=== PATIENT | male | born 1940 | race Caucasian/White ===

== ENCOUNTER 2019-10-20 09:45 | Outpatient (CLI) | payer MEDICARE, OTHER, SELFPAY ==
--- NOTE | 2019-10-22 21:34 | P.PCNPFT_ITS ---
PFT Interpretation PFT Interpretation: DOS: 10/20/2019 REQUESTING: Dr. Bowie REASON FOR TESTING: Dyspnea on exertion PULMONARY FUNCTION TESTS Results are reproducible. Spirometry: Mild decrease in FEV1 79%, 2.13 L. mild decrease in FVC 78%. FEV1% mildly reduced 65% predicted. Decreased IRX30-69%. No bronchodilator was gi nithya. Lung volumes: Normal total lung capacity 94%. Mild increase in RV/TLC ratio consistent with air trapping. Mild increase in airway resistance 193%. Diffusion: DLCO normal 81%. Flow volume loop: Scooping of the expiratory limb. IMPRESSION: Mild obstructive ventilatory impairment severe in the small airways with mild air trapping and increased airway resistance. No bronchodilator was g iven. Thuy Hernandez MD
== END 2019-10-20 09:46 | disposition home or self-care (01) ==
PROVIDERS: PCP Family Medicine; Visit Provider Family Medicine
DX: R06.09 Other forms of dyspnea (principal); R94.2 Abnormal results of pulmonary function studies
CPT/HCPCS: 94375; 94726; 94729

== ENCOUNTER 2020-02-13 09:54 | Outpatient (CLI) | payer MEDICARE, OTHER, SELFPAY ==
--- NOTE | 2020-02-17 11:20 | WPDPFTINT ---
PFT Interpretation PFT Interpretation: This PFT met all criteria for ATS standards and reproducibility FEV/FVC post bronchodilator 65% of predicted FEV1 83% or 2.24 liters FVC 82% or 3.43 liters TLC 94% or 6.00 liters RV 98% RV/TLC 44% DLCO when adjusted for alveolar volume but not adjusted for hemoglobin Flow volume loops showed some mild expiratory coving Impression: Mild airflow obstruction. When compared to PFT from 10/20/19 there has no significant change. Clinical correlation is advised.
== END 2020-02-13 09:55 | disposition home or self-care (01) ==
PROVIDERS: PCP Family Medicine; Visit Provider Family Medicine
DX: R06.00 Dyspnea, unspecified (principal); R94.2 Abnormal results of pulmonary function studies
CPT/HCPCS: 94060; 94726; 94729

== ENCOUNTER 2020-08-10 15:23 | Outpatient (CLI) | payer MEDICARE, OTHER, SELFPAY ==
--- NOTE | ~2020-08-10 | XR_ITS ---
XR knee RT 3V 08/10/2020 16:11 INDICATION: Right knee pain PROCEDURE: 3 views right knee COMPARISON: No prior studies for comparison. FINDINGS: Fracture, dislocation or subluxation is not identified. No significant joint effusion. The soft tissues appear within normal limits. No foreign bodies are identified. IMPRESSION: 1: NO ACUTE BONE OR JOINT ABNORMALITY IDENTIFIED. Reviewed, dictated and finalized at location A. IGURATION MANAGEMENT ANALYST
--- NOTE | ~2020-08-10 | XR_ITS ---
XR lumbar spine 2-3V 08/10/2020 16:12 Indication: Low back pain Procedure: 3 views lumbar spine Comparison: 04/29/2014 Findings: There is mild disc narrowing at multiple levels. There is facet hypertrophy at L4-5 and L5- S1. No evidence for spondylolisthesis. No acute fracture or traumatic malalignment. There is dextrocu rvature of the lumbar spine. There is atherosclerosis. Impression: 1: Moderate lumbar spondylosis. Reviewed, dictated and finalized at location A. SECURITY ENGINEER Impression: 1: Moderate lumbar spondylosis.
--- NOTE | ~2020-08-10 | XR_ITS ---
XR hip RT min 2V 08/10/2020 16:11 Indication: Right hip pain Procedure: 3 views right hip Comparison: 04/29/2014 Findings: There is mild osteoarthritis of the right hip. No fracture or traumatic malalignment. No si gnificant soft tissue abnormality. No radiopaque foreign bodies. Impression: 1: Mild osteoarthritis of the right hip. Reviewed, dictated and finalized at location A. NMASTER Impression: 1: Mild osteoarthritis of the right hip.
== END 2020-08-10 15:24 | disposition home or self-care (01) ==
PROVIDERS: PCP Family Medicine; Visit Provider Physician Assistant
DX: M25.561 Pain in right knee (principal); M47.896 Other spondylosis, lumbar region; M16.11 Unilateral primary osteoarthritis, right hip
CPT/HCPCS: 72100; 73502; 73562

== ENCOUNTER 2020-08-30 15:48 | Outpatient (CLI) | payer MEDICARE, OTHER, SELFPAY ==
--- NOTE | ~2020-08-30 | MR_ITS ---
. EXAMINATION: MR hip RT wo con DATE: 08/30/2020 16:54 INDICATION: Right hip pain. TECHNIQUE: Magnetic resonance imaging (MRI) of the right hip was performed without intravenous contra st. Sequences included axial and coronal PD-weighted FS FSE and axial T1-weighted FSE of the pelvis. Sequences of the hip included 2D FIESTA, T1-weighted fast GRE, and axial, coronal, and sagittal PD-we ighted FS FSE. COMPARISON: Right hip radiographs 08/10/2020 FINDINGS: Bones/cartilage: There is a large distribution of osteonecrosis in right femoral head with abnormal bone marrow signal intensity extending to the base of the femoral neck. There is osteonecrosis in left femoral head inv olving the anteroinferior to posterosuperior articular surface. There is mild osteoarthritis of the h ips. Fluid: There is a small right hip joint effusion. There is mild bilateral trochanteric bursitis. Soft tissues: The prostate is moderately enlarged. There is a right inguinal hernia containing fat. There is modera te tendinopathy of the hamstring origins bilaterally. The iliopsoas tendons are normal. There are par tial tears of the gluteus minimus tendons bilaterally. The gluteus medius tendons are intact. IMPRESSION: 1. Osteonecrosis of the femoral heads, right worse than left. 2. Mild osteoarthritis of the hips. 3. Small right hip joint effusion. Reviewed, dictated and finalized at location A. PLUG SHAPER
== END 2020-08-30 15:49 | disposition home or self-care (01) ==
PROVIDERS: PCP Family Medicine; Visit Provider Family Medicine
DX: M25.451 Effusion, right hip (principal); M87.851 Other osteonecrosis, right femur; M16.11 Unilateral primary osteoarthritis, right hip
CPT/HCPCS: 73721

== ENCOUNTER 2021-07-06 13:12 | Outpatient (CLI) | payer MEDICARE, OTHER, SELFPAY ==
--- NOTE | ~2021-07-06 | US_ITS ---
EXAMINATION:US venous doppler LE LT INDICATION:Left leg swelling TECHNIQUE: Multiple grayscale, color flow and Doppler images of the left lower extremity deep venous systems were obtained and reviewed. COMPARISON:No prior studies for comparison. FINDINGS: The common femoral, superficial femoral and popliteal veins demonstrate normal respiratory variation, augmentation and compressibility. Color flow is also seen within the posterior tibial, pe roneal, greater saphenous and profunda veins. IMPRESSION: 1: No lower extremity deep venous thrombosis. Reviewed, dictated and finalized at location A. ALT STILL OPERATOR
== END 2021-07-06 13:13 | disposition home or self-care (01) ==
LOC: ANHIMG 13:17
PROVIDERS: PCP Family Medicine; Visit Provider Internal Medicine Cardiovascular Disease
DX: M79.89 Other specified soft tissue disorders (principal)
CPT/HCPCS: 93971

== ENCOUNTER 2021-07-20 11:58 | Outpatient (CLI) | payer MEDICARE, OTHER, SELFPAY ==
--- NOTE | ~2021-07-20 | XR_ITS ---
XR hip RT 2V w AP pelvis 07/20/2021 12:32 Indication: Right hip pain Procedure: 3 views right hip Comparison: 08/10/2020 Findings: There is a right total hip arthroplasty. Prosthesis well seated. No fracture or traumatic m alalignment. No significant soft tissue abnormality. Pelvic rings are intact. There is mixed lucency and sclerosis of the left femoral head, suspicious for avascular necrosis. Impression: 1: No acute bone or joint abnormality. 2: Possible avascular necrosis of the left femoral head. Reviewed, dictated and finalized at location A. ATORY ATTENDANT Impression: 1: No acute bone or joint abnormality. 2: Possible avascular necrosis of the left femoral head.
--- NOTE | ~2021-07-20 | XR_ITS ---
XR lumbar spine 6V w bending 07/20/2021 12:32 Indication: Low back pain Procedure: 7 views lumbar spine Comparison: 08/10/2020 Findings: There is mild disc narrowing at L1-2, L2-3. There is facet hypertrophy at L5-S1. No acute f racture, subluxation or dislocation. There is atherosclerosis of the aorta. No alteration of alignmen t with flexion/extension. Impression: 1: Moderate lumbar spondylosis. Reviewed, dictated and finalized at location A. LANE PILOT SUPERVISOR Impression: 1: Moderate lumbar spondylosis.
== END 2021-07-20 11:59 | disposition home or self-care (01) ==
PROVIDERS: PCP Family Medicine; Visit Provider Family Medicine
DX: M25.559 Pain in unspecified hip (principal); M47.896 Other spondylosis, lumbar region
CPT/HCPCS: 72114; 73502

== ENCOUNTER 2022-11-03 13:57 | Outpatient (CLI) | payer MEDICARE, OTHER, SELFPAY ==
--- NOTE | 2022-11-03 14:20 | ECG_ITS ---
Measurements Intervals [place] Rate: 65 P: 36 [place]: 150 QRS: 46 QRSD: 92 T: 45 QT: 370 QTc: 385 Interpretive Statements SINUS RHYTHM EARLY PRECORDIAL R/S TRANSITION BORDERLINE ECG NO PREVIOUS ECG AVAILABLE FOR COMPARISON Electronically Signed On 11-03-2022 14:30:49 NUCLEAR REACTOR OPERATOR by Eric Woodard D.O.
[2022-11-03 15:39] LABS: Anion Gap 5 mmol/L (8-16); Blood Urea Nitrogen 11 mg/dL (9-20); Carbon Dioxide 29 mmol/L (22-30); Chloride 101 mmol/L (98-107); Estimated Glomerular Filt Rate > 60; Glucose 92 mg/dL (65-110); Potassium 4.5 mmol/L (3.4-5.0); Sodium 135 mmol/L (137-145)
== END 2022-11-03 13:58 | disposition home or self-care (01) ==
PROVIDERS: PCP Emergency Medicine; Visit Provider Emergency Medicine
DX: E87.5 Hyperkalemia (principal); R94.31 Abnormal electrocardiogram [ECG] [EKG]
CPT/HCPCS: 36415; 80048; 93005

== ENCOUNTER 2022-12-30 13:16 | Outpatient (CLI) | payer MEDICARE, OTHER, SELFPAY ==
--- NOTE | ~2022-12-30 | MR_ITS ---
EXAMINATION: MR lumbar spine wo con DATE: 12/30/2022 13:59 INDICATION: Left foot drop. TECHNIQUE: Magnetic resonance imaging (MRI) of the lumbar spine was performed without intravenous con trast. Sequences included sagittal T2-weighted FSE, sagittal T2-weighted FS FSE, sagittal T1-weighted FSE, and axial T2-weighted FSE. COMPARISON: Lumbar spine MRI 05/05/2014 FINDINGS: There is 12 degrees dextroscoliosis of thoracolumbar spine. There is 3 mm retrolisthesis of L1 on L2. Vertebral body heights are normal. There is mildly decreased disc height at L1-L2 and L2-L 3 and moderately decreased disc height at L4-L5. The distal spinal cord signal intensity is normal. T he conus medullaris is at L1. The following disc levels are specifically discussed: L1-L2: The disc is bulging and has an annular fissure. There is moderate right and mild left facet shannon int osteoarthritis. There is mild bilateral neural foraminal stenosis. There is mild central canal st enosis. L2-L3: The disc is bulging and has an annular fissure. There is severe bilateral facet joint osteoart hritis. There is mild bilateral neural foraminal stenosis. There is mild central canal stenosis. L3-L4: The disc is bulging. There is severe right and mild left facet joint osteoarthritis. There is mild bilateral neural foraminal stenosis. There is mild central canal stenosis. L4-L5: The disc is bulging. There is severe bilateral facet joint osteoarthritis. There is moderate r ight and mild left neural foraminal stenosis. There is mild central canal stenosis. L5-S1: The disc is bulging. There is severe bilateral facet joint osteoarthritis. There is mild bilat eral neural foraminal stenosis. There is mild central canal stenosis. IMPRESSION: 1. Moderate lumbar spondylosis, worsened from 05/05/2014. 2. Thoracolumbar dextroscoliosis. Reviewed, dictated and finalized at location A.
== END 2022-12-30 13:17 | disposition home or self-care (01) ==
PROVIDERS: PCP Emergency Medicine; Visit Provider Physician Assistant
DX: M21.372 Foot drop, left foot (principal); M47.896 Other spondylosis, lumbar region
CPT/HCPCS: 72148

== ENCOUNTER 2024-03-14 12:34 | Outpatient (CLI) | payer MEDICARE, OTHER, SELFPAY ==
--- NOTE | ~2024-03-14 | MR_ITS ---
EXAMINATION: MR wrist RT wo/w con DATE: 03/14/2024 13:50 INDICATION: Right wrist ganglion cyst TECHNIQUE: Magnetic resonance imaging (MRI) of the right wrist was performed without and with 16 mL M ultihance intravenous contrast. Sequences performed include axial PD-weighted FSE and PD-weighted FS FSE, coronal PD-weighted FS FSE and T1-weighted SE, and sagittal PD-weighted FS FSE and PD-weighted F SE. COMPARISON: None FINDINGS: Intrinsic ligaments: Of the scapholunate interval appears mildly widened however no definitive tear is identified of the s capholunate ligament. The lunotriquetral ligament is intact. Triangular fibrocartilage complex (TFCC): Chronic nonunited fracture of the ulnar styloid process with intact styloid attachment of the triangu lar fibrocartilage complex. The foveal attachment also appears intact. There is a tear along the radi al side of the central fibrocartilaginous disc of the triangular fibrocartilage complex. There is par tial tear of the dorsal radioulnar ligament. The extensor carpi ulnaris tendon sheath appears to rem ain intact. Extensor wrist: There is mild tendinopathy of the extensor carpi ulnaris with longitudinal split tear which begins pr oximal to the ECU groove and appears to extend to the digits attachment base of the fifth metacarpal. Extensor tendons of the wrist are otherwise normal. No tenosynovitis. Flexor wrist: There is enhancing tenosynovitis and small amount of tenosynovial fluid along the flexor digitorum an d flexor pulses longus tendons both proximal and distal to the carpal tunnel. There is mild tendinopa thy of the flexor tendons to the second and third digits collateral with additional longitudinal spli t tearing. There is 3-4 mm outward bowing of the flexor retinaculum with significant flattening of th e median nerve as it passes deep to the flexor retinaculum. Guyon's canal: There is focal bulging of the fluid-filled flexor tendon sheath through an apparent defect in the fle xor retinaculum at the level of the pisiform which exerts mild mass effect and mild ulnarly deviates the course of the ulnar nerve and Guyon's canal. Bones/other: No other fracture site from the nonunited ulnar styloid fracture. Polyarticular osteoarthritis, moder ate severity at the first carpometacarpal joint and mild at the triscaphe, wrist and distal radioulna r joints. Mild likely degenerative subarticular cystic change at both sides of the triscaphe joint wi th small erosion at the palmar aspect of the distal pole of the scaphoid. IMPRESSION: 1. Prominent enhancing tenosynovitis along the flexor digitorum and flexor pollicis longus tendons wi th small amount of fluid both proximal and distal to the carpal tunnel. 2. Likely secondary palmar bulging of the flexor retinaculum and flattening of the underlying median nerve . Correlate clinically for carpal tunnel syndrome. 3. Mild mass effect upon the ulnar nerve at Guyon's canal resulting from palmar bulging with a small amount of fluid in the flexor tendon sheath through a small defect in the flexor retinaculum. 4. Chronic nonunited avulsion fracture of the ulnar styloid process with tear of the radial side of t he triangle fibrocartilage and partial tear of the dorsal radioulnar ligament. Reviewed, dictated and finalized at location A. IMPRESSION: 1. Prominent enhancing tenosynovitis along the flexor digitorum and flexor poll icis longus tendons with small amount of fluid both proximal and distal to the carpal tunnel. 2. Likely secondary palmar bulging of the flexor retinaculum and flattening of the underlying median nerve . Correlate clinically for carpal tunnel syndrome. 3. Mild mass effect upon the ulnar nerve at Guyon's canal resulting from palmar bulging with a small amount of fluid in the
== END 2024-03-14 12:35 | disposition home or self-care (01) ==
PROVIDERS: PCP Emergency Medicine; Visit Provider Plastic Surgery
DX: M67.431 Ganglion, right wrist (principal); G56.03 Carpal tunnel syndrome, bilateral upper limbs
CPT/HCPCS: 73223; A9577

== ENCOUNTER 2024-04-09 10:05 | Outpatient (CLI) | payer MEDICARE, OTHER, SELFPAY ==
--- NOTE | 2024-04-09 11:15 | NEURO_ITS ---
Impression: # Complains of numbness of hands. Non-diabetic. # Severe right Carpal Tunnel Syndrome. # Mild left Carpal Tunnel Syndrome. # Abnormal Needle/EMG exam in right APB. Nerve Conduction Studies Anti Sensory Summary Table Stim Site NR Peak (ms) P-T Amp (?V) Site1 Site2 Delta-P (ms) Dist (cm) Randal (m/s) Left Median Anti Sensory (2-3nd Digit) Wrist 4.4 12.7 Wrist 2-3nd Digit 4.4 14.0 32 Wrist 5.2 9.8 Wrist 2-3nd Digit 4.4 14.0 32 Right Median Anti Sensory (2-3nd Digit) Wrist 7.3 19.5 Wrist 2-3nd Digit 7.3 14.0 19 Wrist 6.5 9.2 Wrist 2-3nd Digit 7.3 14.0 19 Left Radial Anti Sensory (Base 1st Digit) Wrist 2.0 16.4 Wrist Base 1st Digit 2.0 0.0 Right Radial Anti Sensory (Base 1st Digit) Wrist 2.2 11.7 Wrist Base 1st Digit 2.2 0.0 Left Ulnar Anti Sensory (5th Digit) Wrist 3.1 20.2 Wrist 5th Digit 3.1 14.0 45 Right Ulnar Anti Sensory (5th Digit) Wrist 2.9 66.2 Wrist 5th Digit 2.9 14.0 48 Motor Summary Table Stim Site NR Onset (ms) O-P Amp (mV) Site1 Site2 Delta-0 (ms) Dist (cm) Randal (m/s) Left Median Motor (Abd Poll Brev) Wrist 4.0 2.9 Elbow Wrist 5.6 29.0 52 Elbow 9.6 1.5 Right Median Motor (Abd Poll Brev) Wrist 7.5 2.0 Elbow Wrist 6.6 29.0 44 Elbow 14.1 2.0 Left Ulnar Motor (Abd Dig Minimi) Wrist 2.9 9.9 A Elbow Wrist 5.9 31.0 53 A Elbow 8.8 6.5 Right Ulnar Motor (Abd Dig Minimi) Wrist 2.8 6.9 A Elbow Wrist 5.8 30.0 52 A Elbow 8.6 4.9 F Wave Studies NR F-Lat (ms) L-R F-Lat (ms) Left Median (Mrkrs) (Abd Poll Brev) 32.96 0.33 Right Median (Mrkrs) (Abd Poll Brev) 32.63 0.33 Left Ulnar (Mrkrs) (Abd Dig Min) 32.76 0.64 Right Ulnar (Mrkrs) (Abd Dig Min) 32.11 0.64 EMG Side Muscle Nerve Root Ins Act Fibs Amp Dur Recrt Comment Right 1stDorInt Ulnar C8-T1 Nml Nml Nml Nml Nml Right Ext Indicis Radial (Post Int) C7-8 Nml Nml Nml Nml Nml Right Ext Digitorum Radial (Post Int) C7-8 Nml Nml Nml Nml Nml Right BrachioRad Radial C5-6 Nml Nml Nml Nml Nml Right PronatorTeres Median C6-7 Nml Nml Nml Nml Nml Right Abd Poll Brev Median C8-T1 Nml Nml Nml >12ms +2 Right ABD Dig Min Ulnar C8-T1 Nml Nml Nml Nml Nml Left 1stDorInt Ulnar C8-T1 Nml Nml Nml Nml Nml Left Ext Indicis Radial (Post Int) C7-8 Nml Nml Nml Nml Nml Left Ext Digitorum Radial (Post Int) C7-8 Nml Nml Nml Nml Nml Left BrachioRad Radial C5-6 Nml Nml Nml Nml Nml Left PronatorTeres Median C6-7 Nml Nml Nml Nml Nml Left Abd Poll Brev Median C8-T1 Nml Nml Nml Nml Nml Left ABD Dig Min Ulnar C8-T1 Nml Nml Nml Nml Nml MTDD
== END 2024-04-09 10:06 | disposition home or self-care (01) ==
LOC: ANHNEURO 10:07
PROVIDERS: PCP Emergency Medicine; Visit Provider Plastic Surgery
DX: G56.03 Carpal tunnel syndrome, bilateral upper limbs (principal)
CPT/HCPCS: 95886; 95911

== ENCOUNTER 2024-05-08 06:25 | Day surgery (SDC) | payer MEDICARE, OTHER, SELFPAY ==
[2024-04-22 15:20] VITALS: BMI 24.3
--- NOTE | 2024-05-08 06:50 | WPDANESEPPF ---
Anes - Initial Pre Proc Eval Procedure: Operation Date: 05/08/24 08:00 Proposed Procedures p Right Endoscopic Carpal Tunnel Release, Possible Open Carpal Tunnel Release - Reg Suresh MD Date/Time: 05/08/24 06:50 Surgeon: Reg Suresh MD Pre Op Diagnosis: Right Carpal Tunnel Sydrome Patient Data Age: 83 Gender: M Height: 1.78 m Weight: 77 kg Allergies Allergy/AdvReac Type Severity Reaction Status Date / Time No Known Allergies Allergy Mild Verified 05/08/24 07:10 Home Medications Medication Instructions Recorded Confirmed Type mecobalamin (vitamin B12) 2,500 2,500 mcg PO DAILY 04/19/23 04/22/24 History mcg chewable tablet pyridoxine (vitamin B6) 100 mg 100 mg PO DAILY 04/19/23 04/22/24 History tablet ropinirole 0.25 mg tablet 0.25 mg PO QHS #90 tabs 11/19/23 04/22/24 Rx levothyroxine 88 mcg tablet See Rx Instructions .Route 12/28/23 04/22/24 Rx .COMPLEX #90 tabs ibuprofen 200 mg tablet 200 mg PO Q6H PRN Pain (Scale 02/05/24 04/22/24 History Score 1-3) meclizine 25 mg tablet 25 mg PO QID 02/05/24 04/22/24 History melatonin 10 mg capsule 10 mg PO QHS 02/05/24 04/22/24 History multivitamin 1 tablet PO DAILY 02/05/24 04/22/24 History sennosides 8.6 mg capsule (senna) 8.6 mg PO BID 02/05/24 04/22/24 History tramadol 50 mg tablet 50 mg PO Q8H PRN pain #60 tabs 03/19/24 04/22/24 Rx lisinopril 5 mg tablet See Rx Instructions .Route 03/24/24 04/22/24 Rx .COMPLEX #90 tabs atorvastatin 10 mg tablet See Rx Instructions .Route 04/01/24 04/22/24 Rx .COMPLEX #90 tabs Patient hx anesthesia problems: none Family hx anesthesia problems: none Results Review: All pre-operative results and documents have been reviewed as part of the pre-operative evaluation. [facility] Past Medical History Medical History (Updated 05/08/24 @ 06:51 by Juan Miguel Garsia, ) Avascular necrosis of bones of both hips BMI 27.0-27.9,adult COPD (chronic obstructive pulmonary disease) case management patient Essential (primary) hypertension Gout Hernia Hx of cataract Hyperlipidemia Hypertension Hypothyroidism, unspecified Osteoarthritis Surgical History Surgical History H/O hand surgery right hand, aprox 2005, Dr. Haas H/O shoulder surgery right, aprox 2004, Dr. Castro History of hip replacement Dr. Oc Wei [facility] Family History Family History Mother Diabetes mellitus Hypertension Cerebrovascular accident Father Hypertension Social History Social History Smoking status: Former smoker Tobacco type: cigarettes Second hand tobacco smoke exposure: No Alcohol intake: current Alcohol use details: heavy Substance use: never Substance use type: does not use Lack of Transportation: No Lack of Food: Never True Current Housing: I Have Housing Concerned About Future Housing: No Difficulty Paying Gas/Electric Bills: No Difficulty Paying for Meds: No Currently Unemployed: No Education: High School Diploma/GED Difficulty w/ Childcare or Family Care: No Living arrangements: with family Occupation/Education: retired Gender identity (if verbalized by the patient): Male Spiritual care concerns: No Anes - Eval Final PreProcedure Day of Procedure 05/08/24 06:50 Patient weight: normal Heart: regular rate and rhythm Lungs: clear to auscultation and normal air movement Airway: Mallampati scale class II Neurological: alert and oriented Last oral intake: >/= 8 hours ASA classification: III Emergent: no Anesthetic plan: proceed Anesthesia type and monitoring: general GIVS and standard monitoring Results Review: All pre-operative results and documents have been reviewed as part of the pre-operative evaluation. Informed Consent: The patient's anesthetic plan and its attendant r
--- NOTE | 2024-05-08 06:56 | WPDHPUPDATE1 ---
History and Physical Update Update Date/Time: 05/08/24 06:56 Patient seen and examined in pre-operative holding area. No interval change in medical history or symptoms. Patient recalls previous discussion of benefits and alternatives to procedure. Continues to desire to proceed with right endoscopic possible open carpal tunnel release. Reviewed procedure, post-op expectations and risks including but not limited to bleeding, infection, injury to tendon/nerve/vessel, decreased hand function, stiffness, RSD, no change or worsening of symptoms. I discussed the possible use of assistants and their participation in the case. Patient stated understanding and signed the consent form wishing to proceed.
--- NOTE | 2024-05-08 06:56 | W.PM.PROC2 ---
Procedure Note - Detailed Date of Procedure 05/08/24 Pre-op Diagnosis Right Carpal Tunnel Sydrome Post-op Diagnosis Same Procedure Performed right ectr Surgeon Reg Suresh MD Contract Forester zohreh serrano pa-c Anesthesia MAC Description of Procedure INFORMED CONSENT: The patient was seen and examined and marked in the pre-op area.? The patient signed the consent form. PROCEDURE IN DETAIL:The patient taken back to OR on the stretcher in supine position. Time out performed with anesthesia, surgeon and staff agreeing on patient's name site and surgery to be performed SCDs were placed on the lower extremities and inflated. A tourniquet was placed on {right} upper extremity and antibiotics given IV After anesthesia administered sedation I injected {4}cc 1%lido with epi and 0.5% marcaine plain at the operative site The?{right upper extremity}?was prepped and draped in sterile fashion the??{right upper extremity} was? exsanguinated with Esmarch bandage and tourniquet inflated to 250mmHg I made a transverse incision in the {right} volar distal wrist crease through skin and dermis with 15 blade scalpel.? Littler scissors spread down to antebrachial fascia. A small incision was made in antebrachial fascia allowing access to Carpal tunnel. I proceeded with sequential dilation staying in line with the ring finger and hugging the hook of the hamate.? I then used the synovial elevator to free any adhesions from the underside of the transverse carpal ligament. Next I was able to insert the Microaire endoscopic carpal tunnel device with direct visualization of the transverse fibers on the monitor and proceeded with complete segmental retrograde release of the ligament in its entirety.? I irrigated with normal saline and closed with 4-0 monocryl for dermis and subcuticular closure. A dressing of Dermabond, 4x4, paty, and a volar splint was applied for patient safety, security, and comfort and secured with an michele bandage after the tourniquet was let down noting the hand was warm and well perfused. The patient was then awaken from anesthesia and transferred to the recovery room in stable condition.? Complications - none EBL- 0cc Disposition - home in stable conditions zohreh serrano pa-c was essential for positioning, retraction, closure and dressing placement [facility] [place] - Charge Forward: Surgery Billing ([id number] for zohreh)
[2024-05-08 07:18] VITALS: BP 141/65; PULSE 62; RESP 18; TEMP 37.2; O2SAT 99
[2024-05-08] MEDS: LACTATED RINGERS 1,000 ML 30 ML IV CONT (07:20)
[2024-05-08] MEDS: ceFAZolin SODIUM 2 GM/20 ML SW SYRINGE IV PUSH (07:55)
[2024-05-08] MEDS: LIDO 1%/EPINEPHRINE 1:100,000 50 ML VIAL INFILTRATE (07:59)
[2024-05-08] MEDS: BUPivacaine HCL 0.5% 10 ML AMP 3.5 ML INFILTRATE (07:59)
[2024-05-08 08:12] VITALS: BP 85/44; PULSE 58; RESP 16; O2SAT 98
[2024-05-08 08:32] VITALS: BP 112/58; PULSE 62; RESP 18; O2SAT 92
--- NOTE | 2024-05-08 12:01 | WPDANESPN ---
Anes - Prog Note Post-Op Date/Time: 05/08/24 12:01 Cardiovascular status: normal Respiratory status: normal Airway patency: baseline Mental status: baseline Post-Op hydration status: normal Vital Signs: Last Vital Signs Temp 37.2 C 05/08/24 07:18 Pulse 62 05/08/24 08:32 Resp 18 05/08/24 08:32 BP 112/58 L 05/08/24 08:32 Pulse Ox 92 05/08/24 08:32 O2 Del Method Room Air 05/08/24 08:32 O2 Flow Rate 8 05/08/24 08:12 Pain Score (VAS): 0 I/O: Intake & Output 05/07/24 05/08/24 05/08/24 23:59 07:59 15:59 Intake Total 200 Balance 200 Post-procedural complaints: none Patient Feedback: Patient satisfied with anesthetic care. Other Findings: Patient vital signs back to baseline. Patient denies nausea and vomiting. Patient's pain under control. Patient OK for discharge.
== END 2024-05-08 09:08 | disposition home or self-care (01) ==
PROVIDERS: PCP Emergency Medicine; Visit Provider Plastic Surgery
PROC: 01N54ZZ Release Median Nerve, Percutaneous Endoscopic Approach (ICD-10-PCS; CPT 29848; principal; 2024-05-08 08:00)
DX: G56.01 Carpal tunnel syndrome, right upper limb (principal)
CPT/HCPCS: 29848

== ENCOUNTER 2024-09-04 08:54 | Day surgery (SDC) | payer MEDICARE, OTHER, SELFPAY ==
[2024-08-18 11:13] VITALS: BMI 25.1
--- NOTE | 2024-09-03 11:32 | WPDANESEPPF ---
Anes - Initial Pre Proc Eval Procedure: Operation Date: 09/04/24 10:45 Proposed Procedures p Left Endoscopic Carpal Tunnel Release, Possible Open Carpal Tunnel Release - Reg Suresh MD Date/Time: 09/03/24 11:32 Surgeon: Reg Suresh MD Pre Op Diagnosis: Left Carpal Tunnel Syndrome Patient Data Age: 83 Gender: M Height: 1.78 m Weight: 79.5 kg Allergies Allergy/AdvReac Type Severity Reaction Status Date / Time No Known Allergies Allergy Mild Verified 08/18/24 11:07 Home Medications ?Medication ?Instructions ?Recorded ?Confirmed ?Type mecobalamin (vitamin B12) 2,500 2,500 mcg PO DAILY 04/19/23 08/18/24 History mcg chewable tablet pyridoxine (vitamin B6) 100 mg 100 mg PO DAILY 04/19/23 08/18/24 History tablet ropinirole 0.25 mg tablet 0.25 mg PO QHS #90 tabs 11/19/23 08/18/24 Rx ibuprofen 200 mg tablet 200 mg PO Q6H PRN Pain (Scale 02/05/24 08/18/24 History Score 1-3) meclizine 25 mg tablet 25 mg PO QID 02/05/24 08/18/24 History melatonin 10 mg capsule 10 mg PO QHS 02/05/24 08/18/24 History multivitamin 1 tablet PO DAILY 02/05/24 08/18/24 History sennosides 8.6 mg capsule (senna) 8.6 mg PO BID 02/05/24 08/18/24 History tramadol 50 mg tablet 50 mg PO Q8H PRN pain #60 tabs 05/13/24 08/18/24 Rx atorvastatin 10 mg tablet 10 mg PO QPM 08/18/24 08/18/24 History levothyroxine 88 mcg tablet 88 mcg PO DAILY 08/18/24 08/18/24 History lisinopril 5 mg tablet 5 mg PO DAILY 08/18/24 08/18/24 History tramadol 50 mg tablet 50 mg PO Q6H PRN pain #12 tabs 09/04/24 Rx Patient hx anesthesia problems: none Family hx anesthesia problems: none Results Review: All pre-operative results and documents have been reviewed as part of the pre-operative evaluation. [facility] Past Medical History Medical History Avascular necrosis of bones of both hips BMI 27.0-27.9,adult COPD (chronic obstructive pulmonary disease) case management patient Essential (primary) hypertension Gout Hernia Hx of cataract Hyperlipidemia Hypertension Hypothyroidism, unspecified Osteoarthritis Surgical History Surgical History H/O hand surgery right hand, aprox 2005, Dr. Haas H/O shoulder surgery right, aprox 2004, Dr. Castro History of hip replacement Dr. Oc Wei [facility] Family History Family History Mother Diabetes mellitus Hypertension Cerebrovascular accident Father Hypertension Social History Social History Smoking status: Former smoker Tobacco type: cigarettes Second hand tobacco smoke exposure: Yes Alcohol intake: current Alcohol use details: heavy - 5-6 beers/day Substance use: never Substance use type: does not use Lack of Transportation: No Lack of Food: Never True Current Housing: I Have Housing Concerned About Future Housing: No Difficulty Paying Gas/Electric Bills: No Difficulty Paying for Meds: No Currently Unemployed: No Education: High School Diploma/GED Difficulty w/ Childcare or Family Care: No Living arrangements: with family Occupation/Education: retired Gender identity (if verbalized by the patient): Male Spiritual care concerns: No Anes - Eval Final PreProcedure Day of Procedure 09/03/24 11:32 Patient weight: overweight Heart: regular rate and rhythm Lungs: clear to auscultation Airway: Mallampati scale class II Neurological: alert and oriented Last oral intake: >/= 8 hours ASA classification: III Emergent: no Anesthetic plan: proceed Anesthesia type and monitoring: general GIVS and standard monitoring Results Review: All pre-operative results and documents have been reviewed as part of the pre-operative evaluation. Informed Consent: The patient's anesthetic plan and its attendant risks and benefits were discussed with the patient/family/POA. Questions were solicited and answers provided to the satisfaction of the patient/family/POA.
--- NOTE | 2024-09-04 06:54 | P.OP_ITS ---
Procedure Note - Detailed Date of Procedure 09/04/24 Pre-op Diagnosis Left Carpal Tunnel Syndrome Post-op Diagnosis Same Procedure Performed left ectr Surgeon Reg Suresh MD High Speed Warper Tender zohreh serrano pa-c Anesthesia MAC Description of Procedure INFORMED CONSENT: The patient was seen and examined and marked in the pre-op area.? The patient signed the consent form. PROCEDURE IN DETAIL:The patient taken back to OR on the stretcher in supine position. Time out performed with anesthesia, surgeon and staff agreeing on patient's name site and surgery to be performed SCDs were placed on the lower extremities and inflated. A tourniquet was placed on {left} upper extremity and antibiotics given IV After anesthesia administered sedation I injected {5}cc 1%lido with epi and 0.5% marcaine plain at the operative site The?{left upper extremity}?was prepped and draped in sterile fashion the??{left upper extremity} was? exsanguinated with Esmarch bandage and tourniquet inflated to 250mmHg I made a transverse incision in the {left} volar distal wrist crease through skin and dermis with 15 blade scalpel.? Littler scissors spread down to antebrachial fascia. A small incision was made in antebrachial fascia allowing access to Carpal tunnel. I proceeded with sequential dilation staying in line with the ring finger and hugging the hook of the hamate.? I then used the synovial elevator to free any adhesions from the underside of the transverse carpal ligament. Next I was able to insert the Microaire endoscopic carpal tunnel device with direct visualization of the transverse fibers on the monitor and proceeded with complete segmental retrograde release of the ligament in its entirety.? I irrigated with normal saline and closed with 4-0 monocryl for dermis and subcuticular closure. A dressing of Dermabond, 4x4, paty, and a volar splint was applied for patient safety, security, and comfort and secured with an michele bandage after the tourniquet was let down noting the hand was warm and well perfused. The patient was then awaken from anesthesia and transferred to the recovery room in stable condition.? Complications - none EBL- 0cc Disposition - home in stable conditions Zohreh Serrano PA-C was essential for positioning, retraction, closure and dressing placement [facility] Billing Surgery - Charge Forward: Surgery Billing ([id number] for zohreh)
--- NOTE | 2024-09-04 06:54 | WPDHPUPDATE1 ---
History and Physical Update Update Date/Time: 09/04/24 06:54 Patient seen and examined in pre-operative holding area. No interval change in medical history or symptoms. Patient recalls previous discussion of benefits and alternatives to procedure. Continues to desire to proceed with left endoscopic possible open carpal tunnel release. Reviewed procedure, post-op expectations and risks including but not limited to bleeding, infection, injury to tendon/nerve/vessel, decreased hand function, stiffness, RSD, no change or worsening of symptoms. I discussed the possible use of assistants and their participation in the case. Patient stated understanding and signed the consent form wishing to proceed.
[2024-09-04 09:15] VITALS: BP 162/59; PULSE 66; RESP 16; TEMP 36.8; O2SAT 100
[2024-09-04 09:35] VITALS: BP 139/55
[2024-09-04] MEDS: LACTATED RINGERS 1,000 ML 30 ML IV CONT (09:45)
[2024-09-04] MEDS: ceFAZolin SODIUM 2 GM/20 ML SW SYRINGE IV PUSH (09:48)
[2024-09-04 10:07] VITALS: BP 89/46; PULSE 56; RESP 16; O2SAT 100
--- NOTE | 2024-09-04 10:14 | WPDANESPN ---
Anes - Prog Note Post-Op Date/Time: 09/04/24 10:14 Cardiovascular status: normal Respiratory status: normal Airway patency: baseline Mental status: baseline Post-Op hydration status: normal Vital Signs: Last Vital Signs Temp 36.8 C 09/04/24 09:15 Pulse 66 09/04/24 09:15 Resp 16 09/04/24 09:15 BP 139/55 L 09/04/24 09:35 Pulse Ox 100 09/04/24 09:15 O2 Del Method Room Air 09/04/24 09:15 Pain Score (VAS): 0 Post-procedural complaints: none Patient Feedback: Patient satisfied with anesthetic care. Other Findings: Patient vital signs back to baseline. Patient denies nausea and vomiting. Patient's pain under control. Patient OK for discharge.
[2024-09-04 10:35] VITALS: BP 113/56; PULSE 61; RESP 16; O2SAT 96
== END 2024-09-04 10:43 ==
LOC: ASC 08:54
PROVIDERS: PCP Internal Medicine; Visit Provider Plastic Surgery
PROC: 01N54ZZ Release Median Nerve, Percutaneous Endoscopic Approach (ICD-10-PCS; CPT 29848; principal; 2024-09-04 10:45)
DX: G56.02 Carpal tunnel syndrome, left upper limb (principal)
CPT/HCPCS: 29848

== ENCOUNTER 2024-09-24 13:26 | Outpatient (CLI) | payer MEDICARE, OTHER, SELFPAY ==
--- NOTE | ~2024-09-24 | XR_ITS ---
CHEST RADIOGRAPH, PA AND LATERAL CLINICAL HISTORY: R05.9 - Cough, unspecified, WHEEZING, CP X 1 MONTH . COMPARISON: None available TECHNIQUE: PA and lateral views of the chest. FINDINGS The cardiomediastinal silhouette is unremarkable. The lungs are clear. Visualized osseous structures and soft tissues are unremarkable. IMPRESSION: No focal infiltrate or effusion. Reviewed, dictated and finalized at location A. IS INSTRUCTOR
--- OUTSIDE RECORDS SUMMARY | 2024-09-24 14:19 | XMS_ITS | Clinical Summary ---
Author Organization [facility] [address] Address [address] [place] [address] Care Team Providers Care Purification Operator Name Role Phone Maite Bowie MD Primary Care Provider [phone] Oc Wei MD Unavailable [phone] Allergies No known active allergies Medications atorvastatin (LIPITOR) 10 mg tablet Take 10 mg by mouth daily with lunch 1 9 Active levothyroxine (SYNTHROID, LEVOTHROID) 88 mcg tablet Take 88 mcg by mouth daily with lunch 3 9 Active pyridoxine (VITAMIN B-6) 100 mg tablet Take 100 mg by mouth daily Active multivitamin capsule Take 1 capsule by mouth daily Active lcaesgml-bvzkkc-nlp 1-D3-C-geovanni 750625-1,000 mg-mg-unit tablet Take 1 tablet by mouth daily Active melatonin 5 mg tablet Take 5 mg by mouth nightly Active cyanocobalamin (Vitamin B-12) 2,500 mcg tablet, sublingualIndicatio ns:Prevention of Vitamin B12 Deficiency Take 2,500 mcg by mouth daily Active nitroglycerin (NITROSTAT) 0.[address] 1 tablet (0.4 mg total) under the tongue every 5 (five) minutes as needed for chest pain May repeat dose q 5 min, up to 3 doses total 25 tablet 11 9 Active amLODIPine (NORVASC) 5 mg tablet Take 5 mg by mouth daily with lunch 0 Active lisinopriL (PRINIVIL,ZESTRIL) 5 mg tablet Take 5 mg by mouth daily with lunch 0 Active docusate sodium (COLACE) 100 mg capsuleIndications: constipation Take 1 capsule (100 mg total) by mouth 2 (two) times a day 1 Active rOPINIRole (REQUIP) 0.25 mg tablet Take 0.25 mg by mouth nightly Active meloxicam (MOBIC) 15 mg tablet Take 1 tablet (15 mg total) by mouth daily 30 tablet 11 3 Active ondansetron ODT (ZOFRAN-ODT) 4 mg disintegrating tabletIndications:n ausea and vomiting Take 1 tablet (4 mg total) by mouth every 6 (six) hours as needed for nausea or vomiting 20 tablet 1 3 Active aspirin 81 mg enteric coated tabletIndications:D eep Vein Thrombosis Prevention Take 1 tablet (81 mg total) by mouth 2 (two) times a day 0 3 Active Active Problems Problem Noted Date Diagnosed Date Idiopathic aseptic necrosis of left femur 2022 Overview (09/15/2022): Added automatically from request for surgery [id number] Left leg swelling 07/04/2021 Osteoarthritis of right hip 09/23/2020 Overview (09/23/2020): Added automatically from request for surgery [id number] Abnormal stress test 05/01/2019 Essential hypertension 05/01/2019 Hyperlipidemia LDL goal <70 05/01/2019 Hypothyroidism 05/01/2019 Raynaud's disease without gangrene 05/01/2019 Former smoker 05/01/2019 Surgical History Surgery Date Site/Laterality Comments HERNIA REPAIR CATARACT EXTRACTION LIPOMA RESECTION neck ROTATOR CUFF REPAIR Right HAND SURGERY TOTAL HIP ARTHROPLASTY 10/14/2020 Right Medical History Medical History Date Comments Hypertension Hyperlipidemia Cataracts, bilateral Arthritis Hypothyroidism 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 4 or more times a week 11/09/2022 Q2: How many drinks containi ng alcohol do you have on a typical day when you are drinking? 5 or 6 Q3: How often do you have si x or more drinks on one occasion? Daily or almost daily 11/09/2022 Personal Safety Answer Date Recorded Getting School Help Needed Not on file 11/10 Sex and Gender Information Value Date Recorded Sex Assigned at Not on file Legal Sex Male 8:51 AM CDT Gender Identity Not on file Sexual Orientation Not on file Obstetrics History Last Filed Vital Signs Vital Sign Reading Time Taken Comments Blood Pressure 118/45 11/10/2022 7:14 AM CDT Pulse 75 11/10/2022 7:14 AM CDT Temperature 36.6 ??C (97.9 ??F) 11/10/2022 7:14 AM CD T Respiratory Rate 16 11/10/2022 7:14 AM CDT Oxygen Saturation 96% 11/10/2022 7:14 AM CDT Inhaled Oxygen Concentration - - Weight 78.7 kg (173 lb 8 oz) 11/09/2022 6:44 AM CDT Height 175.3 cm (5' 9 ) 11/09/2022 6:44 AM CDT Body Mass Index 25.62 11/09/2022 6:44 AM CDT Plan of Treatment Health Maintenance Due Date Last Done Comments Depression Screening 1941 Fall Risk Assessment 1941 DTaP/Tdap/Td Vaccine (1 - Tdap) 1952 Hepatitis B Screening 1959 Pneumococcal vaccine 65+ (1 of 1 - PCV) 2006 Well Visit 65+ 2006 Influenza Vaccine (#1) 2024 05/07/2019, 2017 Zoster Vaccine Completed 07/02/2018, 04/25/2018 Medical Devices Implanted Type Area Implementation Coordinator Device Identifier Shelf Expiration Date Model / Serial / Lot [employer] 702-04-58f Shell Acetabular Trident Ii Tritanium F Od58mm Hip 5 Screw Hole Cluster Sterile - [id number] Implanted:Qty: 1 on 10/14/2020 by Oc Wei MD at [facility] Right: Hip [employer] [id number] 10/01/2024 702-04-58F / / [id number] [employer] 2232-3380 Screw Bone Trident Ii L50mm Od6.5mm Low Profile Hexagonal Sterile - [id number] Implanted:Qty: 1 on 10/14/2020 by Oc Wei MD at [facility] Right: Hip [employer] [id number] 08/02/2024 1972-4572 / / 34W [employer] [id number] Screw Bone Trident Ii L50mm Od6.5mm Low Profile Hexagonal Sterile - [id number] Implanted:Qty: 1 on 10/14/2020 by Oc eWi MD at [facility] Right: Hip [employer] [id number] 04/21/2024 8443-1707 / / [id number] [employer] [id number] 46mm Modular Dual Mobility Primary Hip F Liner Acetabular Cocr - [id number] Implanted:Qty: 1 on 10/14/2020 by Oc Wei MD at [facility] Right: Hip [employer] [id number] 08/10/2025 [id number] / / [id number] [employer] 6207-1892 Accolade 114mm 37mm Modular Hip 127d 7 Taper Stem Femoral Sterile - [id number] Implanted:Qty: 1 on 10/14/2020 by Oc Wei MD at [facility] Right: Hip [employer] [id number] 07/06/2025 7140-8101 / / [id number] [employer] [id number] V40 28mm Hip -4mm Offset Taper Head Femoral Biolox Delta - [id number] Implanted:Qty: 1 on 10/14/2020 by Oc Wei MD at [facility] Right: Hip [employer] [id number] 07/18/2025 [id number] / / [id number] [employer] [id number] Adm Mobile Bearing Hip Amish 46mm 52mm 28mm 8.9mm Hip - [id number] Implanted:Qty: 1 on 10/14/2020 by Oc Wei MD at [facility] Right: Hip [employer] DUP [id number] 03/25/2025 [id number] / / [id number] [employer] Screw Bone Trident Ii L50mm Od6.5mm Low Profile Hexagonal Sterile 2979-1727 - [id number] Implanted:Qty: 1 on 11/09/2022 by Oc Wei MD at [facility] Left: Hip [employer] [id number] 09/04/2027 2500-3158 / / UFA [employer] Shell Acetabular Trident Ii Tritanium F Od56mm Hip 5 Screw Hole Cluster Sterile 702-04-56f - [id number] Implanted:Qty: 1 on 11/09/2022 by Oc Wei MD at [facility] Left: Hip [employer] [id number] 07/18/2027 702-04-56F / / [id number] [employer] Accolade 114mm 37mm Modular Hip 127d 7 Taper Stem Femoral Sterile 0923-0126 - [id number] Implanted:Qty: 1 on 11/09/2022 by Oc Wei MD at [facility] Left: Hip [employer] [id number] 09/06/2027 5953-5306 / / [id number] [employer] Liner Acetabular Hip Adm Mdm X3 28/52mm Polyethylene 0 Degree 7236-2-852 - [id number] Implanted:Qty: 1 on 11/09/2022 by Oc Wei MD at [facility] Left: Hip [employer] [id number] 03/05/2027 7236-2-852 / / [id number] [employer] V40 28mm Hip -4mm Offset Taper Head Femoral Biolox Delta [id number] - [id number] Implanted:Qty: 1 on 11/09/2022 by Oc Wei MD at [facility] Left: Hip [employer] [id number] 02/06/2027 [id number] / / [id number] [employer] 46mm Modular Dual Mobility Primary Hip F Liner Acetabular Cocr 7290499q - [id number] Implanted:Qty: 1 on 11/09/2022 by Oc Wei MD at [facility] Left: Hip [employer] [id number] 08/14/2027 [id number] / / [id number] [employer] Screw Bone Trident Ii L30mm Od6.5mm Low Profile Hexagonal Sterile 3277-1068 - [id number] Implanted:Qty: 1 on 11/09/2022 by Oc Wei MD at [facility] Left: Hip [employer] [id number] 08/01/2027 5001-6058 / / [id number] Insurance MEDICARE [facility] MEDICARE [place] MEDICARE [facility] Advance Directives For more information, please contact: [phone] * Full Code (Latest Code Status on File) Date Activated Date Inactivated Comments 11/09/2022 1:06 PM 11/10/2022 4:35 PM * Full Code Date Activated Date Inactivated Comments 10/14/2020 11:04 AM 10/15/2020 6:41 PM Care Teams Purification Operator Relationship Specialty Start Date End Date Maite Bowie MD [address] [place] [address] PCP - General Family Medicine 04/30/19 Oc Wei MD [address] [facility] [address] [address] Consulting Physician Orthopedic Surgery 10/14/20
--- OUTSIDE RECORDS SUMMARY | 2024-09-24 14:19 | XMS_ITS | Referral Summary ---
Author Organization [facility] [address] Address [address] [place] [address] Care Team Providers Care Behavioral Health Therapist Name Role Phone Maite Bowie MD Primary Care Provider [phone] Oc Wei MD Unavailable [phone] Allergies No known active allergies Medications atorvastatin (LIPITOR) 10 mg tablet Take 10 mg by mouth daily with lunch 1 9 Active levothyroxine (SYNTHROID, LEVOTHROID) 88 mcg tablet Take 88 mcg by mouth daily with lunch 3 9 Active pyridoxine (VITAMIN B-6) 100 mg tablet Take 100 mg by mouth daily Active multivitamin capsule Take 1 capsule by mouth daily Active wbhvtvlm-yhvayz-oam 1-D3-C-geovanni 750625-1,000 mg-mg-unit tablet Take 1 tablet [...] (09/15/2022): Added automatically from request for surgery [id number] Left leg swelling 07/04/2021 Osteoarthritis of right hip 09/23/2020 Overview (09/23/2020): Added automatically from request for surgery [id number] Abnormal stress test 05/01/2019 Essential hypertension 05/01/2019 Hyperlipidemia LDL goal <70 05/01/2019 Hypothyroidism 05/01/2019 Raynaud's disease without gangrene 05/01/2019 Former smoker 05/01/2019 Social History Tobacco Use Types Packs/Day Years [...] on file Sexual Orientation Not on file Last Filed Vital Signs Vital Sign Reading [...] 11/09/2022 6:44 AM CDT Plan of Treatment Not on file Medical Devices Implanted Type Area Corporate Affairs Manager Device Identifier Shelf Expiration Date Model / Serial / Lot [employer] 702-04-58f Shell Acetabular Trident Ii Tritanium F Od58mm Hip 5 Screw Hole Cluster Sterile - [id number] Implanted:Qty: 1 on 10/14/2020 by Oc Wei MD at [facility] Right: Hip [employer] [id number] 10/01/2024 702-04-58F / / [id number] [employer] 6803-2545 Screw Bone Trident Ii L50mm Od6.5mm Low Profile Hexagonal Sterile - [id number] Implanted:Qty: 1 on 10/14/2020 by Oc Wei MD at [facility] Right: Hip [employer] [id number] 08/02/2024 1795-9154 / / 34W [employer] 6904-6673 Screw Bone Trident Ii L50mm Od6.5mm Low Profile Hexagonal Sterile - [id number] Implanted:Qty: 1 on 10/14/2020 by Oc Wei MD at [facility] Right: Hip [employer] [id number] 04/21/2024 3490-2259 / / 3TE [employer] [id number] 46mm Modular Dual Mobility Primary Hip F Liner Acetabular Cocr - [id number] Implanted:Qty: 1 on 10/14/2020 by Oc Wei MD at [facility] Right: Hip [employer] [id number] 08/10/2025 [id number] / / [id number] [employer] 1075-3051 Accolade 114mm 37mm Modular Hip 127d 7 Taper Stem Femoral Sterile - [id number] Implanted:Qty: 1 on 10/14/2020 by Oc Wei MD at [facility] Right: Hip [employer] [id number] 07/06/2025 4647-8372 / / [id number] [employer] [id number] V40 28mm Hip -4mm Offset Taper Head Femoral Biolox Delta - [id number] Implanted:Qty: 1 on 10/14/2020 by Oc Wei MD at [facility] Right: Hip [employer] [id number] 07/18/2025 [id number] / / [id number] [employer] [id number] Adm Mobile Bearing Hip Scientologist 46mm 52mm 28mm 8.9mm Hip - [id number] Implanted:Qty: 1 on 10/14/2020 by Oc Wei MD at [facility] Right: Hip [employer] DUP [id number] 03/25/2025 [id number] / / [id number] [employer] Screw Bone Trident Ii L50mm Od6.5mm Low Profile Hexagonal Sterile 2783-3249 - [id number] Implanted:Qty: 1 on 11/09/2022 by Oc Wei MD at [facility] Left: Hip [employer] [id number] 09/04/2027 7511-5674 / / UFA [employer] Shell Acetabular Trident Ii Tritanium F Od56mm Hip 5 Screw Hole Cluster Sterile 702-04-56f - [id number] Implanted:Qty: 1 on 11/09/2022 by Oc Wei MD at [facility] Left: Hip [employer] [id number] 07/18/2027 702-04-56F / / [id number] [employer] Accolade 114mm 37mm Modular Hip 127d 7 Taper Stem Femoral Sterile 8745-3595 - [id number] Implanted:Qty: 1 on 11/09/2022 by Oc Wei MD at [facility] Left: Hip [employer] [id number] 09/06/2027 6345-9625 / / [id number] [employer] Liner Acetabular Hip Adm Mdm X3 28/52mm Polyethylene 0 Degree 7236-2-852 - [id number] Implanted:Qty: 1 on 11/09/2022 by Oc Wei MD at [facility] Left: Hip [employer] [id number] 03/05/2027 7236-2-852 / / [id number] [employer] V40 28mm Hip -4mm Offset Taper Head Femoral Biolox Delta [id number] - [id number] Implanted:Qty: 1 on 11/09/2022 by Oc Wei MD at [facility] Left: Hip [employer] [id number] 02/06/2027 [id number] / / [id number] [employer] 46mm Modular Dual Mobility Primary Hip F Liner Acetabular Cocr 7402068v - [id number] Implanted:Qty: 1 on 11/09/2022 by Oc Wei MD at [facility] Left: Hip [employer] [id number] 08/14/2027 [id number] / / [id number] [employer] Screw Bone Trident Ii L30mm Od6.5mm Low Profile Hexagonal Sterile 3308-7407 - [id number] Implanted:Qty: 1 on 11/09/2022 by Oc Wei MD at [facility] Left: Hip [employer] [id number] 08/01/2027 2698-3375 / / [id number] Insurance MEDICARE [facility] MEDICARE [place] MEDICARE [place] Advance Directives For more information, please contact: [phone] * Full Code (Latest Code Status on File) Date Activated Date Inactivated Comments 11/09/2022 1:06 PM 11/10/2022 4:35 PM * Full Code Date Activated Date Inactivated Comments 10/14/2020 11:04 AM 10/15/2020 6:41 PM Care Teams Behavioral Health Therapist Relationship Specialty Start Date End Date Maite Bowie MD [address] [place] [address] PCP - General Family Medicine 04/30/19 Oc Wei MD [address] [facility] [address] [address] Consulting Physician Orthopedic Surgery 10/14/20
--- OUTSIDE RECORDS SUMMARY | 2024-09-24 14:19 | XMS_ITS | Continuity of Care Document ---
Author Organization [facility] Address [address] [place] [address] Phone Care Team Providers Care Phonograph Needle Tip Maker Name Role Phone Mj Garcia Unavailable Unavailab le Allergies, Adverse Reactions, Alerts Substance Reaction Status Criticality No Known Allergies Active No Inform ation Medications Medication Instructions Dosage Effective Dates (start - stop) Status Comments hydrocodone 5 mg-acetaminophen 325 mg tablet take 1-2 tablets by oral route every 4 hours as needed for postop pain control - Active VITAMIN B6 100MG ORAL - Active B12 5,000 mcg-100 mcg sublingual lozenge - Active glucosamine-chondroiti n 167 mg-133 mg capsule - Active Tylenol 8 Hour 650 mg tablet,extended release take 2 tablet by oral route every 8 hours as needed swallowing whole with water. Do not break, crush, dissolve and/or chew. 1300 MG - Active tramadol 50 mg tablet - Active amlodipine 5 mg tablet - Active lisinopril 5 mg tablet - Active Euthyrox 88 mcg tablet - Active atorvastatin 10 mg tablet - Active Procedures Procedure Date X-ray Exam Hip Unilat With Pelvis When P erf 2-3 View Office/outpatient visit,est, mod 2023 X-ray Exam Hip Unilat With Pelvis When P erf 2-3 View AFO Posterior [place] Global/Postop followup visit X-ray Exam Hip Unilat With Pelvis When P erf 2-3 View Global/Postop followup visit X-ray Exam Hip Unilat With Pelvis When P erf 2-3 View Office/outpatient visit,est, mod 2022 X-ray Exam Hip Unilat With Pelvis When P erf 2-3 View Office/outpatient visit,est, mod 2021 X-ray Exam Hip Unilat With Pelvis When P erf 2-3 View Global/Postop followup visit X-ray Exam Hip Unilat With Pelvis When P erf 2-3 View Global/Postop followup visit X-ray Exam Hip Unilat With Pelvis When P erf 2-3 View Office/outpatient visit,new, mod 2020 Advance Directives Directive Yes / No Effective Date File Name No Information Encounters Encounter Description Practice Location Reason(s) For Visit Diagnoses Date Provider Providers Copied on Encounter Office/outpa tient visit,est, mod [facility], [facility] [address], [id number], [place] tel:[phone] [facility] left hip (chief complaint) Presence of left artificial hip jointPain in left hipMuscle weakness (generalized)Fo ot drop, left foot 4 Peterson Barker. [address] [place] [address], [address], [id number] , [place]. tel:[phone] Referring Provider: Mj Carlson, [address] [place] [address] [place] [address], [address]. tel:[phone] [facility], [address], [id number], [place] tel:[phone] [facility] left hip (chief complaint) Presence of left artificial hip jointFoot drop, left foot 3 Peterson Barker. [address] [place] [address], [address], [id number] , [place]. tel:[phone] Referring Provider: Mj Carlson, [facility] [address] [place] [address], [address]. tel:[phone] [facility], [address] [facility] [address], [place], [place], [id number], [place] tel:[phone] [facility] Left hip (chief complaint) Presence of left artificial hip jointPain in left hip 3 Peterson Barker. [address] [facility], [facility] [address], [place], [place], [id number] , [place]. tel:[phone] Referring Provider: Mj Carlson, [address] [facility] [address] [facility], [place], [address]. tel:[phone] Office/outpa tient visit,est, [facility], [address] [address], [place], [place], [id number], [place] tel:[phone] [facility] [employer] [facility] left hip (chief complaint) Pain in left hipBilateral primary osteoarthritis of hipIdiopathic aseptic necrosis of left femur 3 Eriberto hunter. [address] [facility], [address] [address], [place], [place], [id number] , [place]. tel: [phone] Referring Provider: Oc Harper, [address] [facility] [address] [facility], [place], [address]. tel:[phone] Office/outpa tient visit,est, [facility], [address] [address], [place], [place], [id number], [place] tel:[phone] [facility] [employer] [facility] Right hip (chief complaint) Presence of right artificial hip joint 2 Winklerken Barker. [address] [facility], [place], [place], [id number] , [place]. tel:[phone] Referring Provider: Mj Carlson, [address] [facility] [address], [place], [address]. tel:[phone] [facility], [address] [address], [place], [place], [id number], [place] tel:[phone] [facility] Right hip (chief complaint) Idiopathic aseptic necrosis of right femurPresence of right artificial hip joint 1 Winklerken Barker. [address] [facility], [address] [address], [place], [place], [id number] , [place]. tel: [phone] Referring Provider: Mj Carlson, [address] [facility] [address] [facility], [place], [place], [address] [place] [address]. tel:[phone] [facility], [address] [address], [place], [place], [address] [place] [address], [place] [phone] [facility] [employer] [facility] Follow Up of right hip (chief complaint) Presence of right artificial hip joint 1 Peterson Barker. [address] [address], [place], [place], [id number] , [place]. tel: [phone] Referring Provider: Mj Carlson, [address] [place] [address], [place], [place], [address] [place] [address]. [phone] [facility], [address], [id number], [place] tel:[phone] [facility] [employer] [facility] Presence of left artificial hip joint 1 Eriberto hunter. [address] [facility], [address] [address], [place], [place], [id number] , [place]. tel: [phone] Office/outpa tient visit,[facility], [facility], [address] [address], [place], [place], [id number], [place] tel:[phone] [facility] [employer] [facility] Right Hip Giving Out (chief complaint) Bilateral hips (chief complaint) Pain in right hipPain in left hipIdiopathic aseptic necrosis of right femur 1 [place]. [address] [place] [address], [address] [address], [place], [place], [id number] , [place]. tel:[phone] Referring Provider: Oc Harper, [address] [facility] [address] [facility], [place], [address]. [phone] Family History Family Member Type Diagnosis Age At Onset Sister Problem (finding) Osteoarthritis Mother Problem (finding) Diabetes Mother Problem (finding) Gout Father Problem (finding) Gout Brother Problem (finding) Gout Sister Problem (finding) Diabetes Sister Problem (finding) Gout Mother Problem (finding) Osteoporosis Mother Problem (finding) Osteoarthritis Sister Problem (finding) Osteoporosis Sister Problem (finding) Hypertension Brother Problem (finding) Osteoarthritis Brother Problem (finding) Hypertension Sister Problem (finding) Cancer, unknown Mother Problem (finding) Hypertension Immunizations Vaccine Date Status Comments Pneumo (2 yrs or older)(PPV) not administered Source: Source Unspe cified influenza, injectable, quadrivalent, (3 years or older) administered Note: per patient ; Source: Source Unspecified Payers Payer name Insurance type Covered democrat ID Authoriza tion(s) [place] Part [place] [id number] [facility] [id number] Social History Type Description Quantity Date Captured Comments Alcohol Use Details Unknown Caffeine Use Details Unknown Tobacco Use Status No Information Smoking Status Former smoker Non-Smoking Tobacco Use Details : No Details Available : No Details Available Sex Male Vital Signs Date / Time: Height Weight BMI Pulse Rate Blood Pressure Temperature Respiratory Rate Body Surface Area Head Circumference Head Circ. Percentile Wt./Adarsh. Percentile BMI percentile Pulse Ox Inhaled Ox 9:37 AM 70.00 in 78.018 kg (172.00 lbs) 24.6 8 kg/m levi (2) Chief Complaint And Reason For Visit From encounter dated '10/29/2023 10:00'. left hip (chief complaint). 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 He is not in physical therapy nor participating in an exerciseregimen. He endorses pain at the left lateral superior thigh with ambulation. He indicates he can walk about 100 yards, develops pain and manages his pain with periods of rest. He is having some difficulty with breakdown of his foot with the use of his brace for treating foot drop. [facility] as well as his primary care physician and both indicate that they feel thefoot drop is permanent. States concern significant weakness in the left lower extremity, but feels that physical therapy is a waste of time. He is ambulating without assistive device, accompanied to the visit by his and daughter. 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 He is not in physical therapy nor participating in an exercise regimen. He endorses pain at the left lateral superior thigh with ambulation. He indicates he can walk about 100 yards, develops pain and manages his pain with periods of rest. He is having some difficulty with breakdown of his foot with the use of his brace for treating foot drop. He has been seen by neurologist at the [facility] as well as his primary care physician and both indicate that they feel the foot drop is permanent. States concern significant weakness in the left lower extremity, but feels that physical therapy is a waste of time. He is ambulating without assistive device, accompanied to the visit by his and daughter. 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 Indicates that he is having increasing weakness in the lower extremity and foot that is causing him difficulty with ambulation and therapy. Denies injury, trauma, or fall since surgical intervention. Denies fever, chills, generalized feelings of illness or malaise. He is participating in physical therapy and feels that he is not making progress and his foot is slapping with ambulation. He presented to is primary care physician ordered an MRI of his back, and indicates that both the primary care physician and a therapist do not feel that it is related to his back. He is experiencing stabbing pain in his foot, that is currently being treated by gabapentin prescribed by his primary care physician. Indicates that he noticed he was having some difficulty at his first follow-up will was not aware of what it was so he did not mention. States weakness is increasing with time and he is afraid of falling. He is utilizing prescription pain medications, rest, and elevation with no reduction to pain. He is ambulate with the use of a cane at today's office visit, accompanied to the visit by his and daughter. 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 Denies injury, trauma, or fall since surgical intervention. Denies fever, chills, generalized feelings of illness or malaise. He is compliant with the use of aspirin for DVT prophylaxis, and with maintaining posterior hip precautions. He is in physical therapy and feels that it is going okay. He endorses moderate greater trochanteric and gluteal pain rated at a 4 out of 10 with a sharp intermittent nature. He is experiencing pain after physical therapy and stretching exercises. He would like to discuss receiving a refill of his pain medicines. He is utilizing ibuprofen with minimal results. He is ambulating with the use of a cane at today's office visit. natalie Heredia is an 81 year-old male who presents to the office for evaluation of left hip pain. He presents with his family today. He has significantly increasing left hip pain. He has a history of bilateral avascular necrosis he is previously undergone a successful right total hip arthroplasty a proximally one year ago. He is now ambulating with a cane. He has 10 out of 10 pain in the left hip decreased range of motion difficulty with weightbearing progressively worsening pain. He has pain is functionally limiting and now using a 4 prong cane she is using some tramadol. Right hip Yan is a [email or web address] 81-year-old male who presents to the office today for 1 year evaluation of his right posterior total hip arthroplasty, date of surgery 10/14/2020. He expresses concern that he still does not have the desired flexibility and is having difficulty with placing a sock without using a sock assist. He has been in physical therapy multiple times due to pain in his back, and states he will be resuming physical therapy February 01, 2022 for treatment of significant debilitating back pain. He has been treated by neurology who indicates that the pain radiating from his low back region, through his gluteal region, around the anterior thigh through the groin and down to the knee is related to his back pathology as opposed to his hip. Indicates back and groin pain increases with changes to the weather, and rotating in certain directions. Pain is managed with the use of ibuprofen first thing in the morning, and stretching exercises. Denies injury, trauma, or fall since last office visit. Denies fever, chills, generalized feelings of illness or malaise. He is ambulating with out the use of assistive device at today's office visit, and accompanied to the visit by his . Right hip Yan is a plea javy 80-year-old male who presents to the office today for ongoing postop evaluation of his right posterior total hip arthroplasty placed for treatment of osteoarthritis and avascular necrosis of the right femoral head, date of surgery 10/14/2020. He is finished physical therapy, but indicates he does practice the exercises on a regular basis on his own. He has some concerns that he has not gained full range of motion. He endorses mild intermittent greater trochanteric pain, rated at a 1 or 2 out of 10 with a sharp nature. Pain is worsened with deep palpation. Pain is well-managed with ibuprofen as needed. Patient is emulating without assistive device at today's office visit. Follow Up of right hip Yan is a pleasant 80-year-old male who presents to the office today for initial postop evaluation of his right posterior total hip arthroplasty placed for treatment of osteoarthritis and avascular necrosis of the right femoral head, date of surgery 10/14/2020. Patient indicates compliance with the use of aspirin twice a day for DVT prophylaxis and with maintaining posterior hip precautions. He is participating in physical therapy and feels that it is going very well. Patient endorses pain, located at the incision site that is rated from a 123 with a sharp, dull, intermittent nature. Pain is worsened after physical therapy and with deep palpation of the incision site. Pain is well-managed with ibuprofen, ice, rest, and elevation. Patient is ambulating while carrying a cane at today's visit, but indicates that he seldom needs to use it. Bilateral hips Yan is a 79-y ear-old gentleman who presents today with bilateral hip pain. He is accompanied by his daughter. He has had increasing right hip pain with giving way for about one year. His pain is now a 10 out of 10. It is aching occasional sharp and stabbing. He has catching giving way limping night pain popping. Pain is worse with bending climbing stairs descending stairs lifting pushing sitting and walking. Pain is better with jerj-jrw-iqjzpnc medication prescription tramadol resting stretching. He has tried anti-inflammatories and had several MRI scans as well as therapy. Currently Yan uses a walker for ambulationAn MRI scan of the bilateral hips is available for review the shows bilateral avascular necrosis right greater than left right side is grade 3-4 left side is grade 2. There is evidence of collapse of the subchondral bone of the right hip., The left side does not show collapse at this time. MRI scan was reviewed from an independent source I personally reviewed these images and this was utilized in the decision-making to proceed with surgery.He has very few risk factors for avascular necrosis. He is not a smoker he does not use significant alcohol. He has had a mild course of prednisone. He has had no significant trauma or previous surgery or injury to his right hip. Right Hip Giving Out Functional Status Date Functional Assessmen t No Information Instructions Date Instruction Additional Infor sharon Yan will be refer red back to physical therapy. Prescription for custom pedal brace for treatment of foot drop was initiated. She will continue to maintain an adequate level of physical activity and physical fitness. He will work on increasing his strength and function as well as balance and gait. He may use rest, ice, elevation, yins-swz-nhyntvd oral and topical analgesics and NSAIDs for pain and inflammation control as needed. He will utilize an antibiotic prior to any dental visits for 1 more year. Yan and his family demonstrate appropriate understanding the diagnosis and plan of care at this timeDictation completed with [employer] software, grammatical variances and spelling errors may inadvertently occur. Related to Foot drop, left foot Face to face consult ation with patient, family, and Dr. Wei performed. Imaging studies, therapy notes, discharge and hospital physical examinations, and physical exam performed by myself and Dr. Oc Wei. Based on progression of symptomology, and the identifiable initiating or starting point in uncertain etiology recommend EMG of the left lower extremity to evaluate for nerve irritation versus entrapment at the fibular head, AFO for safety with ambulation and monitoring. Once EMG study results are obtained patient will be notified in a more thorough plan of care or changes to the plan of care can be developed. A considerable amount of time was spent counseling the patient on realistic expectations of outcome, possible recovery with general recovery in 6-9 months, however as patient is physiologically at the higher and of Spectrum for performance of total hip arthroplasty his recovery may be longer than anticipated. He will continue the use of gabapentin provided by his primary care physician, continue physical therapy, be placed in an AFO, and continue to maintain safety with ambulation utilizing a cane at all times. He may use rest, ice, elevation, rsuk-cze-kecquns pain medications and NSAIDs for pain and inflammation control. He will utilize an antibiotic prior to any dental visits for the next 2 years, but will avoid dental care until he is 3-6 months postop unless it is emergent. He demonstrates appropriate understanding the diagnosis and plan of care at this time and our office will notify him once results of nerve conduction study are obtained. Dictation completed with [employer] Edition software, grammatical variances and spelling errors may inadvertently occur. 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 He will continue the use of aspirin for DVT prophylaxis until he is 6 weeks postop, and maintain posterior hip precautions until he is 8 weeks postop. He will continue in physical therapy. He will not submerge the surgical incision in standing water nor use topical products until he is at least 8 weeks postop, infection risk was reviewed in depth. He will continue the use of compression stockings. He may use rest, ice, elevation, zuqz-mhy-cxlpqve pain medications and NSAIDs, and prescription pain medications. A refill on hydrocodone/ acetaminophen 5/ 325 mg tablets will be sent to his pharmacy electronically at the conclusion of today's office visit. He will utilize an antibiotic prior to any dental visits for the next 2 years, but will avoid dental care until he is 3-6 months postop unless it is emergent. He demonstrates appropriate understanding of the diagnosis and plan of care at this time and will follow up with our office in 8 weeks. He was encouraged to contact the office with any questions or concerns that might arise. Dictation completed with [employer] software, grammatical variances in spelling errors may inadvertently occur. Related to Presence of left artificial hip joint We discussed in deta il the specifics of the operation consisting of the pre-operative evaluation, the surgical procedure, and the post operative recovery course. I explained the prosthetic ( ceramic on polyethylene bearing). We discussed the risks and benefits. Specifically, bleeding, possible blood transfusion, DVT, PE, dislocation, infection, persistent pain, mechanical loosening, leg length discrepancy. We also obtained templating radiographs to size the components and measure the pre-operative leg lengths. We discussed the hospital stay vs outpatient total joint procedure and the recovery period. Including, post op PT and DVT prophylaxis. 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 I explained the prosthetic ( ceramic on polyethylene bearing). we discussed the risks and benefits. Specifically, bleeding, possible blood transfusion, DVT, PE, dislocation, infection, persistant pain, mechanical loosening, leg length discrepancy. We also obtained templating radiographs to size the components and measure the pre-opertive leg lengths. We discussed the hospital stay and the recpvery period. Including, post op PT and DVT prophylaxis. Appropriate medical clearence will be obtained and the patient will be scheduled for total hip arthroplasty.We will proceed through posterior lateral approach. Procedure will be performed at [facility] due to the patient's advanced age of 79. 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 No suspicion of mechanical loosening or septic joint Patient Care Teams Name Effective Dates (start - stop) Status Members No Information
== END 2024-09-24 13:27 | disposition home or self-care (01) ==
PROVIDERS: PCP Internal Medicine; Visit Provider Nurse Practitioner
DX: R05.9 Cough, unspecified (principal)
CPT/HCPCS: 71046

== ENCOUNTER 2024-10-28 15:36 | Outpatient (CLI) | payer MEDICARE, OTHER, SELFPAY ==
[2024-10-28 19:02] LABS: Alanine Aminotransferase 41 U/L (6-50); Albumin Level 4.6 g/dL (3.5-5.1); Alkaline Phosphatase 91 U/L (38-126); Anion Gap 9 mmol/L (4-12); Aspartate Amino Transferase 43 U/L (17-59); Bilirubin,Total 0.5 mg/dL (0.2-1.3); Blood Urea Nitrogen 19 mg/dL (9-20); Calcium 9.3 mg/dL (8.4-10.2); Carbon Dioxide 29 mmol/L (22-30); Chloride 101 mmol/L (98-107); Cholesterol 179 mg/dL (0-200); Estimated Glomerular Filt Rate 60; Glucose 117 mg/dL (65-110); HDL Direct 87 mg/dL; Potassium 4.7 mmol/L (3.4-5.0); Sodium 139 mmol/L (137-145); Triglycerides 158 mg/dL (<150)
[2024-10-28 19:13] LABS: LDL Cholesterol Direct 62 mg/dL
[2024-10-28 19:18] LABS: Hemoglobin A1C 5.5 % (<5.7)
[2024-10-28 19:21] LABS: Basophils Absolute Auto 0.1 K/mm3 (0.0-0.1); Basophils Percent Auto 0.8 % (0.2-1.2); Eosinophils Absolute Auto 0.1 K/mm3 (0-0.3); Eosinophils Percent Auto 1.2 % (0-4.4); Hematocrit 37.7 % (42.0-52.0); Hemoglobin 12.6 g/dL (14.0-18.0); Immature Granulocyte Absolute 0.02 K/mm3 (0.00-0.031); Immature Granulocyte Percent A 0.3 % (0-0.5); Lymphocytes Absolute Auto 1.67 K/mm3 (0.9-3.2); Mean Corpuscular HGB Conc 33.4 g/dl (32-36); Mean Corpuscular Hemoglobin 32.8 pg (26-34); Mean Corpuscular Volume 98.2 fl (80-100); Mean Platelet Volume 9.2 fl (7.4-10.4); Monocytes Absolute Auto 0.9 K/mm3 (0.1-0.6); Monocytes Percent Auto 12.4 % (2.6-8.5); Neutrophils Absolute Auto 4.5 K/mm3 (1.3-6.7); Neutrophils Percent Auto 62.3 % (45.5-73.1); Platelet Count Result 274 k/mm3 (150-375); Red Blood Count 3.84 M/mm3 (4.6-6.20); Red Cell Distribution Width 13.3 % (11.5-14.5); White Blood Count 7.3 K/mm3 (4.5-10.0)
[2024-10-28 20:01] LABS: Free T3 3.12 pg/mL (2.34-5.61); Free T4 Free Thyroxine 0.88 ng/dL (0.78-2.19)
[2024-10-28 20:08] LABS: Folic Acid > 20.0 ng/mL (2.76->20)
== END 2024-10-28 15:37 | disposition home or self-care (01) ==
LOC: ANHGOSHLAB 15:38
PROVIDERS: PCP Internal Medicine; Visit Provider Internal Medicine
DX: E03.9 Hypothyroidism, unspecified (principal); I10 Essential (primary) hypertension; E78.2 Mixed hyperlipidemia; D64.9 Anemia, unspecified; J44.9 Chronic obstructive pulmonary disease, unspecified; E78.5 Hyperlipidemia, unspecified; R73.9 Hyperglycemia, unspecified
CPT/HCPCS: 36415; 80053; 80061; 82607; 82728; 82746; 83036; 84439; 84443; 84481; 85025